=== PATIENT | female | born 1945 | race Caucasian/White ===

== ENCOUNTER 2023-07-25 12:59 | Inpatient (IN) | payer MEDICARE, OTHER ==
[~2023-07-25] VITALS: Ht 152.4 cm; Wt 53.1 kg
[2023-07-25] MEDS: IV NS 0.9% 1,000 ML BAG IV ONE (13:38)
[2023-07-25 13:56] LABS: BASOPHILS % (AUTO) 0.3 % (0.0-2.0); EOSINOPHILS % (AUTO) 0.3 % (0.0-6.0); HEMATOCRIT 39 % (33-45); HEMOGLOBIN 12.7 g/dL (11.5-14.8); LYMPHOCYTES # (AUTO) 1.4 K/uL (0.8-4.8); LYMPHOCYTES % (AUTO) 18.3 % (20.0-44.0); MEAN CORPUSCULAR HEMOGLOBIN 30 PG (26.0-33.0); MEAN CORPUSCULAR HGB CONC 33 g/dl (31.0-36.0); MEAN CORPUSCULAR VOLUME 92 fL (82-100); MONOCYTES # (AUTO) 0.6 K/uL (0.1-1.30); MONOCYTES % (AUTO) 7.7 % (2.0-12.0); NEUTROPHILS # (AUTO) 5.7 K/uL (1.8-8.9); NEUTROPHILS % (AUTO) 73.4 % (43.0-81.0); PLATELET COUNT (AUTO) 250 K/uL (150-450); RED CELL DISTRIBUTION WIDTH 14.3 % (11.5-15.0); WHITE BLOOD COUNT (AUTO) 7.7 K/uL (4.3-11.0)
[2023-07-25 14:10] LABS: ALBUMIN 3.3 g/dL (3.4-5.0); ALKALINE PHOSPHATASE 101 U/L (46-116); ASPARTATE AMINOTRANSFERASE 33 U/L (15-37); BILIRUBIN,DIRECT 0.2 mg/dL (0.0-0.2); BILIRUBIN,TOTAL 0.7 mg/dL (0.2-1.0); CARBON DIOXIDE 28 mmol/L (21-32); CHLORIDE 105 mmol/L (98-107); CREATININE 0.8 mg/dL (0.6-1.3); GLUCOSE 101 mg/dL (74-106); POTASSIUM 4.1 mmol/L (3.5-5.1); SODIUM SERUM 143 mmol/L (136-145); TOTAL PROTEIN, SERUM 7.2 g/dL (6.4-8.2); UREA NITROGEN, BLOOD 26 mg/dL (7-18)
[2023-07-25 14:29] LABS: ALANINE AMINOTRANSFERASE 18 U/L (12-78); CALCIUM, SERUM 10.2 mg/dL (8.5-10.1)
[2023-07-25] MEDS ORDERED: MIRT7.5T10 PO (15:48)
[2023-07-25] MEDS ORDERED: CARB1TAB21 PO (15:48)
[2023-07-25] MEDS ORDERED: OMEP20CA15 PO (15:48)
[2023-07-25] MEDS ORDERED: QUET25TA PO (15:48)
[2023-07-25] MEDS ORDERED: APIX5TAB PO (15:48)
[2023-07-25] MEDS ORDERED: NEUPRO TD (15:48)
[2023-07-25] MEDS ORDERED: AMIO200T5 PO (15:48)
[2023-07-25] MEDS ORDERED: HYOS0.3738 PO (15:48)
[2023-07-25] MEDS ORDERED: CARB1CAP PO (15:48)
[2023-07-25 15:50] LABS: APPEARANCE,URINE CLEAR (CLEAR); BILIRUBIN,URINE NEGATIVE (NEGATIVE); BLOOD, URINE TRACE-INTA Ery/uL (NEGATIVE); COLOR,URINE YELLOW (YELLOW); KETONES,URINE NEGATIVE (NEGATIVE); LEUKOCYTE ESTERASE ,URINE NEGATIVE (NEGATIVE); NITRITE, URINE NEGATIVE (NEGATIVE); PROTEIN,URINE NEGATIVE (NEGATIVE); UGLUCOSE NEGATIVE (NEGATIVE); UROBILINOGEN,URINE 0.2 EU/dL (0.2)
[2023-07-25 16:00] VITALS: BP 128/59; TEMP 99.1; O2SAT 95
[2023-07-25] MEDS ORDERED: ONDANSETRON HCL/PF 4 MG/2 ML VIAL IVP PRN (18:00)
[2023-07-25] MEDS ORDERED: ACETAMINOPHEN 325 MG TABLET PO PRN (18:00)
[2023-07-25] MEDS ORDERED: Z GUARD REMEDY 4 OZ OINT TP PRN (18:00)
[2023-07-25] MEDS ORDERED: ZOLPIDEM TARTRATE 5 MG TABLET PO PRN (18:00)
[2023-07-25] MEDS ORDERED: MULT-1244 PO (19:06)
[2023-07-25] MEDS ORDERED: CALC-11 PO (19:06)
[2023-07-25] MEDS ORDERED: SENN-170 PO (19:06)
[2023-07-25] MEDS ORDERED: DOCU100C36 PO (19:06)
[2023-07-25] MEDS ORDERED: ASCO100058 PO (19:06)
[2023-07-25] MEDS ORDERED: CHOL100043 PO (19:06)
[2023-07-25] MEDS ORDERED: POLY17PO4 PO (19:06)
[2023-07-25 20:00] VITALS: BP 100/63; TEMP 97.9; O2SAT 95
[2023-07-25] MEDS ORDERED: ENOXAPARIN SODIUM 40 MG/0.4 ML DISP.SYRIN SQ SCH (21:00)
[2023-07-25] MEDS ORDERED: LEVODOPA PO SCH (21:00)
[2023-07-25] MEDS ORDERED: CARBIDOPA PO SCH (21:00)
[2023-07-25] MEDS ORDERED: [UNRECOGNIZED DRUG - OTHER] PO SCH (21:00)
[2023-07-25] MEDS: QUETIAPINE FUMARATE 25 MG TABLET PO SCH (21:30)
[2023-07-26 07:06] LABS: BASOPHILS % (AUTO) 0.6 % (0.0-2.0); EOSINOPHILS # (AUTO) 0.1 K/uL (0.0-0.7); EOSINOPHILS % (AUTO) 1.2 % (0.0-6.0); HEMATOCRIT 38 % (33-45); HEMOGLOBIN 12.8 g/dL (11.5-14.8); LYMPHOCYTES # (AUTO) 1.6 K/uL (0.8-4.8); LYMPHOCYTES % (AUTO) 22.8 % (20.0-44.0); MEAN CORPUSCULAR HEMOGLOBIN 31 PG (26.0-33.0); MEAN CORPUSCULAR HGB CONC 33 g/dl (31.0-36.0); MEAN CORPUSCULAR VOLUME 92 fL (82-100); MONOCYTES # (AUTO) 0.6 K/uL (0.1-1.30); MONOCYTES % (AUTO) 9.1 % (2.0-12.0); NEUTROPHILS # (AUTO) 4.7 K/uL (1.8-8.9); NEUTROPHILS % (AUTO) 66.3 % (43.0-81.0); PLATELET COUNT (AUTO) 243 K/uL (150-450); RED BLOOD CELL COUNT(AUTO) 4.17 MIL/uL (4.0-5.2); RED CELL DISTRIBUTION WIDTH 14.4 % (11.5-15.0); WHITE BLOOD COUNT (AUTO) 7.1 K/uL (4.3-11.0)
[2023-07-26] MEDS: PANTOPRAZOLE 40 MG TABLET.DR PO SCH (07:18)
[2023-07-26 07:31] LABS: CALCIUM, SERUM 8.9 mg/dL (8.5-10.1); CREATININE 0.7 mg/dL (0.6-1.3); MAGNESIUM 2.2 mg/dL (1.8-2.4); PHOSPHORUS 3.5 mg/dL (2.5-4.9); POTASSIUM 3.9 mmol/L (3.5-5.1)
[2023-07-26 08:00] VITALS: BP 125/75; TEMP 98.1; O2SAT 95
[2023-07-26] MEDS ORDERED: NEUPRO TD SCH (09:00)
[2023-07-26] MEDS ORDERED: AMIODARONE HCL 200 MG TABLET PO SCH (09:00)
[2023-07-26] MEDS ORDERED: HYOSCYAMINE SULFATE 0.375 MG PO SCH (09:00)
[2023-07-26] MEDS: MIRTAZAPINE 15 MG TABLET PO SCH (09:54)
[2023-07-26] MEDS: APIXABAN 5 MG TABLET PO SCH (09:55)
[2023-07-26 16:00] VITALS: BP 115/84; TEMP 97.2; O2SAT 98
[2023-07-26 20:00] VITALS: BP 123/67; TEMP 98.4; O2SAT 95
[2023-07-26 20:13] VITALS: BP 123/67; TEMP 98.4; O2SAT 95
[2023-07-26] MEDS: AMIODARONE HCL 200 MG TABLET PO SCH (20:19)
[2023-07-26] MEDS: MAG HYDROX/AL HYDROX/SIMETH 30 ML UDC PO PRN (21:33)
[2023-07-27 08:00] VITALS: BP 119/53; TEMP 97.7; O2SAT 95
[2023-07-27 16:00] VITALS: BP 135/100; TEMP 99.7; O2SAT 94
[2023-07-27 20:37] VITALS: BP 106/74; TEMP 98.8; O2SAT 94
[2023-07-28 06:55] LABS: BASOPHILS % (AUTO) 0.5 % (0.0-2.0); EOSINOPHILS # (AUTO) 0.1 K/uL (0.0-0.7); EOSINOPHILS % (AUTO) 1.7 % (0.0-6.0); HEMATOCRIT 38 % (33-45); HEMOGLOBIN 12.7 g/dL (11.5-14.8); LYMPHOCYTES # (AUTO) 1.9 K/uL (0.8-4.8); LYMPHOCYTES % (AUTO) 28.4 % (20.0-44.0); MEAN CORPUSCULAR HEMOGLOBIN 31 PG (26.0-33.0); MEAN CORPUSCULAR HGB CONC 34 g/dl (31.0-36.0); MEAN CORPUSCULAR VOLUME 92 fL (82-100); MONOCYTES # (AUTO) 0.6 K/uL (0.1-1.30); MONOCYTES % (AUTO) 8.8 % (2.0-12.0); NEUTROPHILS # (AUTO) 4.1 K/uL (1.8-8.9); NEUTROPHILS % (AUTO) 60.6 % (43.0-81.0); PLATELET COUNT (AUTO) 222 K/uL (150-450); RED CELL DISTRIBUTION WIDTH 14.5 % (11.5-15.0); WHITE BLOOD COUNT (AUTO) 6.7 K/uL (4.3-11.0)
[2023-07-28 07:12] LABS: CALCIUM, SERUM 8.6 mg/dL (8.5-10.1); CREATININE 0.7 mg/dL (0.6-1.3); MAGNESIUM 2.2 mg/dL (1.8-2.4); PHOSPHORUS 3.6 mg/dL (2.5-4.9); POTASSIUM 3.4 mmol/L (3.5-5.1)
[2023-07-28 09:15] VITALS: BP 130/90; TEMP 97.8; O2SAT 92
[2023-07-28 10:24] VITALS: BP 130/90
[2023-07-28] MEDS: POTASSIUM CHLORIDE 20 MEQ TAB.PRT.SR PO ONE (10:28)
[2023-07-28] MEDS ORDERED: AMIO200T7 PO (12:13)
[2023-07-28] MEDS: MAGNESIUM HYDROXIDE 30 ML UDC PO PRN (12:54)
[2023-07-28 13:23] VITALS: TEMP 97.3; O2SAT 94
[2023-07-28] MEDS ORDERED: CARBIDOPA/LEVODOPA 25/100 MG 1 UDTAB PO SCH (17:00)
== END 2023-07-28 15:30 | DRG 641 ==
LOC: ER 12:59 → MED 15:54
PROVIDERS: ADMIT Student in an Organized Health Care Education/Training Program; ATTEND Student in an Organized Health Care Education/Training Program
DX: R62.7 Adult failure to thrive (principal); D68.59 Other primary thrombophilia; E86.0 Dehydration; I48.91 Unspecified atrial fibrillation; G20.A1 Parkinson's disease without dyskinesia, without mention of fluctuations; Z88.0 Allergy status to penicillin; R79.89 Other specified abnormal findings of blood chemistry; I48.0 Paroxysmal atrial fibrillation; Z79.899 Other long term (current) drug therapy; E03.9 Hypothyroidism, unspecified; Z79.01 Long term (current) use of anticoagulants
CPT/HCPCS: 36415; 71045-TC; 80048-TC; 80076-TC; 82962-TC; 83735-TC; 84100-TC; 84439-TC; 84443-TC; 84481; 84484-TC; 85025-TC; 97110-TC; 97530-TC; G0378; J7030